=== PATIENT | male | born 1990 | race Hispanic/Latino ===

== ENCOUNTER → 2018-04-25 | Emergency (ER) | payer OTHER ==
[~2018-04-25] VITALS: Ht 170.2 cm; Wt 81.7 kg
[~2018-04-25] MED LIST: ANAPROX DS550 MG PO; AUGMENTIN 875-1 EACH PO; CLINDAMYCIN HC300 MG PO; KEFLEX500 MG PO; NORCO 5-325 TA1 EACH PO; PROAIR HFA8.5 GM IH; PROVENTIL HFA6.7 GM INH; SEROQUEL100 MG PO; VICODIN 5-3001 EACH PO
== END ==
LOC: ED 19:08
DX: J34.0 Abscess, furuncle and carbuncle of nose (principal); J45.909 Unspecified asthma, uncomplicated; Z79.899 Other long term (current) drug therapy
CPT/HCPCS: 99283

== ENCOUNTER 2019-10-31 13:03 | Emergency (ER) | payer OTHER ==
[~2019-10-31] VITALS: Ht 170.2 cm; Wt 107.5 kg
[~2019-10-31 13:03] MED LIST changes: +BUSPIRONE HCL15 MG PO; +GABAPENTIN300 MG PO; +HYDROXYZINE HCL50 MG PO; +MELOXICAM15 MG PO; +MIRTAZAPINE45 MG PO; +OMEPRAZOLE20 MG PO; +ONDANSETRON HCL4 MG PO; +PREDNISONE20 MG PO; +QUETIAPINE FUM100 MG PO; +VENTOLIN HFA18 GM INH
--- OUTSIDE RECORDS SUMMARY | 2019-10-31 13:06 | XMS ---
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 Guidelines Source: [facility] [place] Guidelines Date: 02/26/2019 Care Coordination: Currently engaged in mental health services with [facility].\T\nbsp; Please contact [facility] with mental health concerns.\T\nbsp; [facility] [phone]\T\nbsp; Дмитрий: [phone]. E.D. VISIT COUNT (12 MO.) 2 [facility] TOTAL 2 NOTE: Visits indicate total known visits. ED/UCC VISIT TRACKING (12 MO.) 10/31/2019 13:03 [facility] [place] TYPE: Emergency COMPLAINT: - FINGER LAC 02/24/2019 15:29 [facility] [place] TYPE: Emergency COMPLAINT: - NOT FEELING WELL INPATIENT VISIT TRACKING (12 MO.) 02/24/2019 15:30 [facility] [place] TYPE: Observation COMPLAINT: - ASTHMA EXACERBATION DIAGNOSES: - Insomnia due to medical condition - Moderate persistent asthma with (acute) exacerbation - Psychophysiologic insomnia - Viral intestinal infection, unspecified Viral int - Other custodial (current) drug therapy - Dehydration - Obstructive sleep apnea (adult) (pediatric) - Vomiting, unspecified - Gastro-esophageal reflux disease without esophagitis - Acute respiratory failure with hypoxia [id number]
== END 2019-10-31 13:47 | disposition home or self-care (01) ==
LOC: ED 13:03
DX: S61.210A Laceration without foreign body of right index finger without damage to nail, initial encounter (principal); W26.8XXA Contact with other sharp object(s), not elsewhere classified, initial encounter; J45.909 Unspecified asthma, uncomplicated; Z79.899 Other long term (current) drug therapy; Z79.52 Long term (current) use of systemic steroids
CPT/HCPCS: 99282

== ENCOUNTER 2022-06-17 18:51 | Emergency (ER) | payer OTHER ==
[~2022-06-17] VITALS: Ht 170.2 cm; Wt 100.2 kg
[2022-06-17] MEDS ORDERED: K-TAB ER20 MEQ PO (23:46)
[2022-06-17] MEDS ORDERED: LASIX20 MG PO (23:46)
== END 2022-06-17 23:58 | disposition home or self-care (01) ==
LOC: ED 18:51
DX: R60.0 Localized edema (principal); J45.909 Unspecified asthma, uncomplicated; G47.30 Sleep apnea, unspecified; I10 Essential (primary) hypertension
CPT/HCPCS: 36415; 80053; 85025; 99284; A9270

== ENCOUNTER 2022-11-18 21:06 | Emergency (ER) | payer OTHER ==
[~2022-11-18] VITALS: Ht 17.8 cm; Wt 93.4 kg
[~2022-11-18 21:06] MED LIST changes: +K-TAB ER20 MEQ PO; +LASIX20 MG PO
--- OUTSIDE RECORDS SUMMARY | 2022-11-18 21:16 | XMS ---
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 ED/UCC VISIT TRACKING (12 MO.) 11/18/2022 21:09 [facility] [place] TYPE: Emergency COMPLAINT: - FACIAL SWELLING 11/18/2022 13:24 [facility] [place] TYPE: Emergency COMPLAINT: - R SIDE FACE SWELLING 06/17/2022 18:52 [facility] [place] TYPE: Emergency COMPLAINT: - FOOT SWELLING/NON INJURY DIAGNOSES: - Other specified soft tissue disorders - Unspecified asthma, uncomplicated - Sleep apnea, unspecified - Localized edema - Essential (primary) hypertension INPATIENT VISIT TRACKING (12 MO.) No inpatient visits to display in this time frame [id number]
[2022-11-18] MEDS ORDERED: BACTRIM DS TAB1 EACH PO (21:32)
== END 2022-11-18 21:47 | disposition home or self-care (01) ==
LOC: ED 21:06
DX: L03.211 Cellulitis of face (principal); M27.2 Inflammatory conditions of jaws; I10 Essential (primary) hypertension; J45.909 Unspecified asthma, uncomplicated; G47.30 Sleep apnea, unspecified; Z79.899 Other long term (current) drug therapy
CPT/HCPCS: 99282; A9270

== ENCOUNTER 2023-05-22 20:39 | Emergency (ER) | payer OTHER ==
[~2023-05-22] VITALS: Ht 170.2 cm; Wt 90.7 kg
--- OUTSIDE RECORDS SUMMARY | ~2023-05-22 | XMS | Continuity of Care Document ---
Demographics + + + | Address | [address] | | | [place] [address] | + + + | Preferred Language | Unknown | + + + | Marital Status | Never | + + + | Adventist Affiliation | Unknown | + + + | Race | Unknown | + + + | Ethnic Group | or | + + + Author + + + | Author | [facility] | + + + | Organization | [facility] | + + + | Address | [address] | | | [place] [address] | + + + | Phone | | + + + Care Team Providers + + + + | Care Racecar Driver Name | Role | Phone | + + + + Unavailable | Unavailable | + + + + Unavailable | Unavailable | + + + + Allergies No information. Encounters No information. Functional Status No information. Immunizations No information. Medications + + + + | date | description | facility | + + + + | 2015-12-25 00:00 | HYDROCODONE | [facility] | | | BIT/ACETAMINOPHEN | | + + + + | 2022-06-17 00:00 | POTASSIUM CHLORIDE | [facility] | + + + + | 2022-06-17 00:00 | FUROSEMIDE | [facility] | + + + + | 2018-04-25 00:00 | CEPHALEXIN | [facility] | + + + + | 2018-04-25 00:00 | CLINDAMYCIN HCL | [facility] | + + + + | 2013-03-28 00:00 | ALBUTEROL SULFATE | [facility] | + + + + | 2015-12-25 00:00 | AMOXICILLIN/POTASSIUM CLAV | [facility] | | | | | + + + + | 2022-11-18 00:00 | | [facility] | | | SULFAMETHOXAZOLE/TRIMETHOPR | | | | IM DS | | + + + + | 2013-07-26 00:00 | HYDROCODONE | [facility] | | | BIT/ACETAMINOPHEN | | + + + + Problems + + + + | date | description | facility | + + + + | 2014-08-28 00:00 | Exacerbation of chronic | [facility] | | | back pain | | + + + + | 2015-12-25 00:00 | Medial orbital wall | [facility] | | | fracture | | + + + + | 2018-04-25 00:00 | Cellulitis of nose | [facility] | + + + + | 2019-10-31 00:00 | Laceration | [facility] | + + + + | 2022-06-17 00:00 | Edema of both lower | [facility] | | | extremities | | + + + + | 2022-11-18 00:00 | Cellulitis and abscess of | [facility] | | | face | | + + + + | 2022-11-18 00:00 | Patient left without being | [facility] | | | seen | | + + + + Procedures No information. Results/Labs +--------+--------+ +---------+--------+---------+ | test | date | facility | value | unit | notes | +--------+--------+ +---------+--------+---------+ + + | Result panel 1 | + + + + + +-------+ + + | | 2022-06-17 | [facility] | 5.6 | (missing) | (missing) | | (unavailable | 22:51 | [facility] | | | | + + + +-------+ + + + + | Result panel 2 | + + + + + +--------+ + + | | 2022-06-17 | [facility] | 48.0 | (missing) | (missing) | | (unavailable | 22:51 | [facility] | | | | + + + +--------+ + + + + | Result panel 3 | + + + + + +--------+ + + | | 2022-06-17 | [facility] | 35.2 | (missing) | (missing) | | (unavailable | 22:51 | [facility] | | | | + + + +--------+ + + + + | Result panel 4 | + + + + + +--------+ + + | | 2022-06-17 | [facility] | 10.3 | (missing) | (missing) | | (unavailable | 22:51 | [facility] | | | | + + + +--------+ + + + + | Result panel 5 | + + + + + +-------+ + + | | 2022-06-17 | [facility] | 6.0 | (missing) | (missing) | | (unavailable | 22:51 | [facility] | | | | + + + +-------+ + + + + | Result panel 6 | + + + + + +-------+ + + | | 2022-06-17 | [facility] | 0.5 | (missing) | (missing) | | (unavailable | 22:51 | [facility] | | | | + + + +-------+ + + + + | Result panel 7 | + + + + + +------+---------+ + | | 2022-06-17 | [facility] | 86 | mg/dL | (missing) | | (unavailable | 22:51 | [facility] | | | | + + + +------+---------+ + + + | Result panel 8 | + + + + + +------+---------+ + | | 2022-06-17 | [facility] | 15 | mg/dL | (missing) | | (unavailable | 22:51 | [facility] | | | | + + + +------+---------+ + + + | Result panel 9 | + + + + + +--------+---------+ + | | 2022-06-17 | [facility] | 0.87 | mg/dL | (missing) | | (unavailable | 22:51 | [facility] | | | | + + + +--------+---------+ + + + | Result panel 10 | + + + + + +-------+ + + | | 2022-06-17 | [facility] | 118 | (missing) | (missing) | | (unavailable | 22:51 | [facility] | | | | + + + +-------+ + + + + | Result panel 11 | + + + + + +---------+ + + | | 2022-06-17 | [facility] | 17.24 | (missing) | (missing) | | (unavailable | 22:51 | [facility] | | | | + + + +---------+ + + + + | Result panel 12 | + + + + + +--------+ + + | | 2022-06-17 | [facility] | 4.50 | (missing) | (missing) | | (unavailable | 22:51 | [facility] | | | | + + + +--------+ + + + + | Result panel 13 | + + + + + +-------+ + + | | 2022-06-17 | [facility] | 138 | (missing) | (missing) | | (unavailable | 22:51 | [facility] | | | | + + + +-------+ + + + + | Result panel 14 | + + + + + +-------+ + + | | 2022-06-17 | [facility] | 3.3 | (missing) | (missing) | | (unavailable | 22:51 | [facility] | | | | + + + +-------+ + + + + | Result panel 15 | + + + + + +-------+ + + | | 2022-06-17 | [facility] | 101 | (missing) | (missing) | | (unavailable | 22:51 | [facility] | | | | + + + +-------+ + + + + | Result panel 16 | + + + + + +------+ + + | | 2022-06-17 | [facility] | 29 | (missing) | (missing) | | (unavailable | 22:51 | [facility] | | | | + + + +------+ + + + + | Result panel 17 | + + + + + +--------+ + + | | 2022-06-17 | [facility] | 11.3 | (missing) | (missing) | | (unavailable | 22:51 | [facility] | | | | + + + +--------+ + + + + | Result panel 18 | + + + + + +-------+---------+ + | | 2022-06-17 | [facility] | 8.5 | mg/dL | (missing) | | (unavailable | 22:51 | [facility] | | | | + + + +-------+---------+ + + + | Result panel 19 | + + + + + +-------+ + + | | 2022-06-17 | [facility] | 6.8 | (missing) | (missing) | | (unavailable | 22:51 | [facility] | | | | + + + +-------+ + + + + | Result panel 20 | + + + + + +-------+ + + | | 2022-06-17 | [facility] | 3.7 | (missing) | (missing) | | (unavailable | 22:51 | [facility] | | | | + + + +-------+ + + + + | Result panel 21 | + + + + + +-------+ + + | | 2022-06-17 | [facility] | 3.1 | (missing) | (missing) | | (unavailable | 22:51 | [facility] | | | | + + + +-------+ + + + + | Result panel 22 | + + + + + +--------+ + + | | 2022-06-17 | [facility] | 1.19 | (missing) | (missing) | | (unavailable | 22:51 | [facility] | | | | + + + +--------+ + + + + | Result panel 23 | + + + + + +--------+ + + | | 2022-06-17 | [facility] | 13.3 | (missing) | (missing) | | (unavailable | 22:51 | [facility] | | | | + + + +--------+ + + + + | Result panel 24 | + + + + + +-------+ + + | | 2022-06-17 | [facility] | 1.0 | (missing) | (missing) | | (unavailable | 22:51 | [facility] | | | | + + + +-------+ + + + + | Result panel 25 | + + + + + +------+ + + | | 2022-06-17 | [facility] | 17 | (missing) | (missing) | | (unavailable | 22:51 | [facility] | | | | + + + +------+ + + + + | Result panel 26 | + + + + + +------+ + + | | 2022-06-17 | [facility] | 28 | (missing) | (missing) | | (unavailable | 22:51 | [facility] | | | | + + + +------+ + + + + | Result panel 27 | + + + + + +------+ + + | | 2022-06-17 | [facility] | 90 | (missing) | (missing) | | (unavailable | 22:51 | [facility] | | | | + + + +------+ + + + + | Result panel 28 | + + + + + +--------+ + + | | 2022-06-17 | [facility] | 39.3 | (missing) | (missing) | | (unavailable | 22:51 | [facility] | | | | + + + +--------+ + + + + | Result panel 29 | + + + + + +--------+ + + | | 2022-06-17 | [facility] | 87.2 | (missing) | (missing) | | (unavailable | 22:51 | [facility] | | | | + + + +--------+ + + + + | Result panel 30 | + + + + + +--------+ + + | | 2022-06-17 | [facility] | 29.5 | (missing) | (missing) | | (unavailable | 22:51 | [facility] | | | | + + + +--------+ + + + + | Result panel 31 | + + + + + +--------+ + + | | 2022-06-17 | [facility] | 33.8 | (missing) | (missing) | | (unavailable | 22:51 | [facility] | | | | + + + +--------+ + + + + | Result panel 32 | + + + + + +--------+ + + | | 2022-06-17 | [facility] | 12.7 | (missing) | (missing) | | (unavailable | 22:51 | [facility] | | | | + + + +--------+ + + + + | Result panel 33 | + + + + + +-------+ + + | | 2022-06-17 | [facility] | 222 | (missing) | (missing) | | (unavailable | 22:51 | [facility] | | | | + + + +-------+ + + Social History No information. Vital Signs + + + +---------+ | date | measurement | value | units | + + + +---------+ | 2022-06-17 00:00 | BMI | 34.6 | kg/m2 | + + + +---------+ | 2022-06-17 00:00 | height_metric | 170.18 | cm | + + + +---------+ | 2022-06-17 00:00 | height_standard | 67 | in | + + + +---------+ | 2022-06-17 00:00 | weight_metric | 100.24 | kg | + + + +---------+ | 2022-06-17 00:00 | weight_standard | 220.99 | lb | + + + +---------+ | 2022-06-17 00:00 | weight_standard | 221 | lb | + + + +---------+ | 2022-06-18 00:00 | BP_diastolic | 79 | mmHg | + + + +---------+ | 2022-06-18 00:00 | BP_systolic | 130 | mmHg | + + + +---------+ | 2022-06-18 00:00 | heart_rate | 55 | /min | + + + +---------+ | 2022-06-18 00:00 | o2_saturation | 100 | % | + + + +---------+ | 2022-06-18 00:00 | respiration_rate | 17 | /min | + + + +---------+ | 2022-06-18 00:00 | temperature_metric | 36.78 | C | | | | | | + + + +---------+ | 2022-06-18 00:00 | | 98.2 | F | | | temperature_standar | | | | | d | | | + + + +---------+ | 2022-11-18 00:00 | BMI | 2955.8 | kg/m2 | + + + +---------+ | 2022-11-18 00:00 | BMI | 32.4 | kg/m2 | + + + +---------+ | 2022-11-18 00:00 | BP_diastolic | 87 | mmHg | + + + +---------+ | 2022-11-18 00:00 | BP_diastolic | 96 | mmHg | + + + +---------+ | 2022-11-18 00:00 | BP_systolic | 141 | mmHg | + + + +---------+ | 2022-11-18 00:00 | BP_systolic | 158 | mmHg | + + + +---------+ | 2022-11-18 00:00 | heart_rate | 103 | /min | + + + +---------+ | 2022-11-18 00:00 | heart_rate | 85 | /min | + + + +---------+ | 2022-11-18 00:00 | height_metric | 17.78 | cm | + + + +---------+ | 2022-11-18 00:00 | height_metric | 170.18 | cm | + + + +---------+ | 2022-11-18 00:00 | height_standard | 67 | in | + + + +---------+ | 2022-11-18 00:00 | height_standard | 7 | in | + + + +---------+ | 2022-11-18 00:00 | o2_saturation | 100 | % | + + + +---------+ | 2022-11-18 00:00 | o2_saturation | 99 | % | + + + +---------+ | 2022-11-18 00:00 | respiration_rate | 16 | /min | + + + +---------+ | 2022-11-18 00:00 | respiration_rate | 18 | /min | + + + +---------+ | 2022-11-18 00:00 | temperature_metric | 36.5 | C | | | | | | + + + +---------+ | 2022-11-18 00:00 | temperature_metric | 36.83 | C | | | | | | + + + +---------+ | 2022-11-18 00:00 | | 97.7 | F | | | temperature_standar | | | | | d | | | + + + +---------+ | 2022-11-18 00:00 | | 98.3 | F | | | temperature_standar | | | | | d | | | + + + +---------+ | 2022-11-18 00:00 | weight_metric | 93.44 | kg | + + + +---------+ | 2022-11-18 00:00 | weight_metric | 93.7 | kg | + + + +---------+ | 2022-11-18 00:00 | weight_standard | 206 | lb | + + + +---------+ | 2022-11-18 00:00 | weight_standard | 206.57 | lb | + + + +---------+ | 2022-11-18 00:00 | weight_standard | 206.58 | lb | + + + +---------+"
--- OUTSIDE RECORDS SUMMARY | ~2023-05-22 | XMS | Continuity of Care Document ---
Demographics + + + | Address | [address] | | | [place] [address] | + + + | Preferred Language | Unknown | + + + | Marital Status | Never | + + + | Pentecostal Affiliation | Unknown | + + + | Race | Unknown | + + + | Ethnic Group | or | + + + Author + + + | Author | [facility] | + + + | Organization | [facility] | + + + | Address | [address] | | | [place] [address] | + + + | Phone | | + + + Care Team Providers + + + + | Care Human Resources Trainer Name | Role | Phone | + + + + Unavailable | Unavailable | + + + + Unavailable | Unavailable | + + + + Allergies No information. Encounters No information. Functional Status No information. Immunizations No information. Medications + + + + | date | description | facility | + + + + | 2015-12-25 00:00 | HYDROCODONE | [facility] | | | BIT/ACETAMINOPHEN | | + + + + | 2022-06-17 00:00 | POTASSIUM CHLORIDE | [facility] | + + + + | 2022-06-17 00:00 | FUROSEMIDE | [facility] | + + + + | 2018-04-25 00:00 | CEPHALEXIN | [facility] | + + + + | 2018-04-25 00:00 | CLINDAMYCIN HCL | [facility] | + + + + | 2013-03-28 00:00 | ALBUTEROL SULFATE | [facility] | + + + + | 2015-12-25 00:00 | AMOXICILLIN/POTASSIUM CLAV | [facility] | | | | | + + + + | 2022-11-18 00:00 | | [facility] | | | SULFAMETHOXAZOLE/TRIMETHOPR | | | | IM DS | | + + + + | 2013-07-26 00:00 | HYDROCODONE | [facility] | | | BIT/ACETAMINOPHEN | | + + + + Problems + + + + | date | description | facility | + + + + | 2014-08-28 00:00 | Exacerbation of chronic | [facility] | | | back pain | | + + + + | 2015-12-25 00:00 | Medial orbital wall | [facility] | | | fracture | | + + + + | 2018-04-25 00:00 | Cellulitis of nose | [facility] | + + + + | 2019-10-31 00:00 | Laceration | [facility] | + + + + | 2022-06-17 00:00 | Edema of both lower | [facility] | | | extremities | | + + + + | 2022-11-18 00:00 | Cellulitis and abscess of | [facility] | | | face | | + + + + | 2022-11-18 00:00 | Patient left without being | [facility] | | | seen | | [...]
[~2023-05-22 20:39] MED LIST changes: +BACTRIM DS TAB1 EACH PO
--- OUTSIDE RECORDS SUMMARY | 2023-05-22 20:42 | XMS ---
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 - Patient with suicidal and/or homicidal ideations eloped. - Patient eloped with IV in place. Details: Patient LWOB. CRITERIA MET - [facility] CARE PROVIDERS -Ole- Dentist: Ball Shagger [facility] PHONE: [phone] SOHA WHITE Physician Dough Raiser 11/01/2019-Current PHONE: [phone] Care Guidelines exist for the following facilities: [facility] ( 12/22/2020 Luis Weiss VISIT COUNT (12 MO.) 1 [facility] 1 [facility] 4 RAFAELA Almanzar TOTAL 6 NOTE: Visits indicate total known visits. ED/UCC VISIT TRACKING (12 MO.) 05/22/2023 20:40 [facility] [place] TYPE: Emergency COMPLAINT: - CHEMICAL EXPOSURE 12/23/2022 11:06 [facility] [place] TYPE: Emergency DIAGNOSES: - Poisoning by unspecified drugs, medicaments and biological substances, accidental (unintentional), initial encounter - DIZZINESS 11/19/2022 15:21 [facility] Fay [facility] TYPE: Emergency DIAGNOSES: - Cutaneous abscess of face - facial swelling 11/18/2022 21:09 [facility] [place] TYPE: Emergency COMPLAINT: - FACIAL SWELLING DIAGNOSES: - Cellulitis of face - Essential (primary) hypertension - Inflammatory conditions of jaws - Localized swelling, mass and lump, head - Other chcf (current) drug therapy - Sleep apnea, unspecified - Unspecified asthma, uncomplicated 11/18/2022 13:24 [facility] [place] TYPE: Emergency COMPLAINT: - R SIDE FACE SWELLING 06/17/2022 18:52 [facility] [place] TYPE: Emergency COMPLAINT: - FOOT SWELLING/NON INJURY DIAGNOSES: - Essential (primary) hypertension - Localized edema - Other specified soft tissue disorders - Sleep apnea, unspecified - Unspecified asthma, uncomplicated INPATIENT VISIT TRACKING (12 MO.) No inpatient visits to display in this time frame [id number]
[2023-05-22 22:41] VITALS: BP 132/71
== END 2023-05-22 22:40 | disposition home or self-care (01) ==
LOC: ED 20:39
DX: Z77.29 Contact with and (suspected) exposure to other hazardous substances (principal); I10 Essential (primary) hypertension; J45.909 Unspecified asthma, uncomplicated
CPT/HCPCS: 99283